=== PATIENT | female | born 1960 | race Caucasian/White ===

== ENCOUNTER 2019-12-27 08:11 | Outpatient (CLI) | payer OTHER, SELFPAY ==
--- NOTE | ~2019-12-27 | CT_ITS ---
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 Automated exposure control and iterative reconstruction technique were employe d. Exam dose: 640.63 mGy-cm total exam DLP. COMPARISON: 07/28/2019, 04/05/2019, 06/10/2017 CT abdomen/CT abdomen pelvis FINDINGS: The lung bases are clear. Normal heart size. No pericardial or pleural effusion. A small cyst is identified in the lateral segment of the left hepatic lobe. The liver, gallbladder, s pleen, pancreas and the bile and pancreatic ducts are otherwise unremarkable. Stable right adrenal m ild asymmetric enlargement. Normal left adrenal gland. No renal mass lesion or urinary tract calculus or hydroureteronephrosis. The uterus, adnexa and urinary bladder are unremarkable. Normal caliber of the abdominal aorta. No intraperitoneal or retroperitoneal or pelvic mass lesion o r lymphadenopathy. Status post right colon resection. No recurrent mass lesion or bowel obstruction or thickening, pneu matosis or pneumoperitoneum. There is a wide supraumbilical ventral midline abdominal hernia containing fat and a portion of the l eft hepatic lobe. Immediately caudal to this is a small fat-containing umbilical hernia. Moderate degenerative disc disease and minimal retrolisthesis at L1-2. There is severe degenerative d isc disease at L4-5 with mild retrolisthesis, moderate degenerative disc disease at L5-S1. Diffuse id iopathic skeletal hyperostosis of the lower thoracic spine. Bilateral hip osteoarthritis. IMPRESSION: Postoperative change of the right colon; no evidence of recurrent neuroendocrine tumor Supraumbilical midline ventral abdominal wall hernia containing liver and fat Immediately caudal small fat-containing umbilical hernia Small hepatic cyst Reviewed, dictated and finalized at [facility]. Reviewed, dictated and finalized at location A.
[2019-12-27 10:01] LABS: Estimated Glomerular Filt Rate > 60
== END 2019-12-27 08:12 | disposition home or self-care (01) ==
PROVIDERS: PCP Family Medicine; Visit Provider Surgery
DX: K43.9 Ventral hernia without obstruction or gangrene (principal); K42.9 Umbilical hernia without obstruction or gangrene; N28.1 Cyst of kidney, acquired
CPT/HCPCS: 36415; 74177; Q9967

== ENCOUNTER 2020-01-09 00:10 | Outpatient (CLI) | payer OTHER, SELFPAY ==
[2020-01-09 16:41] LABS: SARS-CoV-2 RNA PCR Negative
== END 2020-01-09 00:11 | disposition home or self-care (01) ==
LOC: ANHCOVIDDT 00:10
PROVIDERS: PCP Family Medicine; Visit Provider Surgery
DX: Z01.812 Encounter for preprocedural laboratory examination (principal); Z20.828 Contact with and (suspected) exposure to other viral communicable diseases
CPT/HCPCS: 87635; C9803; U0003

== ENCOUNTER 2020-01-09 08:54 | Outpatient (CLI) | payer OTHER, SELFPAY | END 2020-01-09 08:55 | disposition home or self-care (01) | LOC: ANHSURGERY 08:56 | PROVIDERS: PCP Family Medicine; Visit Provider Surgery | DX: Z01.818 Encounter for other preprocedural examination (principal); K43.2 Incisional hernia without obstruction or gangrene | CPT/HCPCS: 36415; 86850; 86900; 86901 ==

== ENCOUNTER 2020-01-11 02:16 | Day surgery (SDC) | payer OTHER, SELFPAY ==
[2020-01-03 10:25] VITALS: BMI 26.4
[2020-01-11] VITALS (11 sets, daily range): BP systolic 109–131; BP diastolic 61–83; PULSE 76–92; RESP 8–15; TEMP 36.6–36.9; O2SAT 92–100
[2020-01-11] MEDS: LACTATED RINGERS 1,000 ML 30 ML IV CONT ×2 (08:10→12:51)
[2020-01-11] MEDS: IBUPROFEN IV 800 MG/200 ML 800 MG/200 ML BAG 400 MG IVPB (08:18)
--- NOTE | 2020-01-11 08:47 | WPDHPUPDATE1 ---
History and Physical Update Update Date/Time: 01/11/20 08:47 History and Physical has been reviewed, including an updated exam of the patient. There are NO changes in the patient's condition. Risks, benefits, and alternatives have been discussed and questions answered. Patient agrees to proceed with procedure.
--- NOTE | 2020-01-11 08:49 | P.PNAN_ITS ---
Anes - Initial Pre Proc Eval Procedure: Operation Date: 01/11/20 09:30 Proposed Procedures p Laparoscopic Incisional Hernia Repair With Mesh, Davinci Assisted - Wali Paul DO Date/Time: 01/11/20 08:49 Surgeon: Wali Paul DO Pre Op Diagnosis: Incisional Hernia Patient Data Age: 59 Gender: F Height: 5 ft 8 in Weight: 87.2 kg Last Vital Signs Temp 98.4 F 01/11/20 08:00 Pulse 76 01/11/20 08:00 BP 109/70 01/11/20 08:00 Pulse Ox 98 01/11/20 08:00 Allergies Allergy/AdvReac Type Severity Reaction Status Date / Time rivaroxaban AdvReac Severe AL Verified 01/03/20 10:26 lisinopril AdvReac Mild COUGH Verified 01/03/20 10:26 Home Medications Medication Instructions Recorded Confirmed Type duloxetine 60 mg capsule,delayed 60 mg PO DAILY 12/12/19 01/11/20 History release losartan 50 mg tablet 50 mg PO DAILY 12/12/19 01/11/20 History Vitamin D3 1 tablet PO DAILY 01/03/20 01/11/20 History glucos sul [id number]-[id number]-C-Mn 1 cap PO DAILY 01/03/20 01/11/20 History [Glucosamine Chondroitin] lysine 1 tablet PO DAILY 01/03/20 01/11/20 History multivitamin 1 tablet PO DAILY 01/03/20 01/11/20 History trazodone 50 mg PO HS 01/03/20 01/11/20 History Patient hx anesthesia problems: none Family hx anesthesia problems: none [facility] Past Medical History Medical History Depressed Heart attack History of colon cancer History of malignant neoplasm of appendix HTN (hypertension) Surgical History Surgical History (Updated 12/14/19 @ 11:35 by Wali Paul DO) H/O colonoscopy History of knee replacement Hx of right hemicolectomy Social History Social History Smoking status: Never smoker Second hand tobacco smoke exposure: No Alcohol intake: current Substance use: never 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 Questions were solicited and answers provided to the satisfaction of the patient/family/POA.
[2020-01-11] MEDS: ceFAZolin 2 GM/D5W 50 ML 2 GM/50 ML BAG IVPB (09:22)
--- NOTE | 2020-01-11 12:37 | PM.PROC ---
Procedure Note - Detailed Date of procedure: 01/11/20 Pre-op diagnosis: Incisional Hernia Post-op diagnosis: same Procedure performed: Laparoscopic incisional hernia repair with Symbotex mesh, da Soo assisted Description of procedure: Procedure as well as risks, benefits, and alternatives were discussed with the patient. Written consent was obtained and placed in chart prior to procedure. Patient was brought back to surgical suite. She was placed supine on operating table. Time-out was done to confirm patient and procedure. She was then intubated by the anesthesia department. A bump was placed under her left hip, and the bed was flexed slightly to extend the space between her costal margin and iliac crest. Her abdomen was prepped and draped in sterile fashion using chlorhexidine prep. A 5 millimeter incision was made in the left upper quadrant, and a 5 millimeter Optiview trocar was advanced through the abdominal layers under direct visualization. Once inside the abdominal cavity, carbon dioxide insufflation was used to create a pneumoperitoneum. The abdomen was inspected. An 8 millimeter incision was made in the left lower quadrant, and an 8 millimeter robotic trocar was placed under direct visualization. Another 8 millimeter incision was made in the left lateral abdomen, and an 8 millimeter robotic trocar was placed under direct visualization. Exparel was infiltrated along the lateral abdominal lopes to perform a transversus abdominis plane block bilaterally. The 5 millimeter port was removed, the incision was extended to 12 millimeters, and a 12 millimeter air seal port was placed under direct visualization. A Jd-Aparicio cone was also used to place an 0-Vicryl simple interrupted suture at this trocar site. The robotic arms were brought up to the patient's bedside and secured to the ports. The camera and instruments were inserted, and I then moved over to the robotic console and took control of the camera and instruments. After careful thorough inspection of the abdominal cavity, I began my dissection at the hernia. The hernia sac was excised with hook electrocautery to expose the fascia edges. The falciform ligament was taken down for about 10 cm cephalad with hook cautery as well. I then measured the hernia size. The hernia measured 6cm x 6cm. The fascia was closed using an 0-Stratafix running suture in a vertical fashion. A 12in suture was started at both the superior and inferior edges of the hernia and the suture was run to overlap in the central portion of the hernia. A 15cm x 10cm Symbotex mesh was then placed within the abdominal cavity. This was oriented vertically with the mesh centered on the hernia defect. The mesh was then secured around the perimeter with 2-0 V-lock absorbable suture. Two 18in sutures were started on opposite ends and run circumferentially and then the suture was run along the midline to the central portion of the mesh. The repair was inspected, and one final inspection was made around the abdominal cavity. The robotic instruments were then removed, and the robotic arms were disengaged from the trocars. The ports were then removed under direct visualization, the camera was removed, and the pneumoperitoneum was released. The 0 Vicryl transfascial suture was tied down. The skin of the incisions was then approximated using 4-0 Monocryl subcuticular suture. Exofin glue was then applied on top. The patient was then awakened from anesthesia, extubated, and transferred to recovery. Implants: Symbotex Mesh 15cm x 10cm Anesthesia: GETA and local (Exparel) Surgeon: Wali Paul DO Estimated blood loss (mL): 10 Drains: No Pathology: yes (hernia sac) Complications: No immediate complications Condition: stable Findings: Marci is a 59 yo woman who presents with an incisional hernia. She is s/p SAM right hemicolectomy with ileocolic anastomosis on 04/12/19. She reports noticing a bulge at incision site about 6-7 wee
== END 2020-01-11 15:45 | disposition home or self-care (01) ==
PROVIDERS: PCP Family Medicine; Visit Provider Surgery
PROC: (CPT 49654; principal; 2020-01-11 09:30)
DX: K43.2 Incisional hernia without obstruction or gangrene (principal); I10 Essential (primary) hypertension; I25.2 Old myocardial infarction; F32.9 Major depressive disorder, single episode, unspecified; Z79.01 Long term (current) use of anticoagulants; Z85.038 Personal history of other malignant neoplasm of large intestine; Z85.89 Personal history of malignant neoplasm of other organs and systems
CPT/HCPCS: 49654; S2900; 88302; C1781; C9290; J0690; J1100; J1170; J1741; J2250; J2405; J2704; J2710; J3010; J7120

== ENCOUNTER 2020-04-23 20:29 | Emergency (ER) | payer OTHER, SELFPAY ==
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
--- NOTE | ~2020-04-23 | CT_ITS ---
EXAMINATION: CT brain wo con DATE: 04/23/2020 20:52 INDICATION: Confusion. TECHNIQUE: Computed tomography (CT) of the head was performed without intravenous contrast. The mA wa s adjusted according to patient size. Iterative reconstruction technique was employed. The dose-lengt h product was 681.00 mGy-cm. COMPARISON: None FINDINGS: There is no intracranial hemorrhage, acute infarction, or abnormal intracranial mass lesion . The ventricles are normal in size. The orbits are normal. The paranasal sinuses are clear. The mast oid air cells are normal. IMPRESSION: 1. Normal brain. Reviewed, dictated and finalized at location A. IMPRESSION: 1. Normal brain.
[2020-04-23 20:33] VITALS: BP 128/95; PULSE 96; RESP 18; O2SAT 100
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
[2020-04-23 21:00] VITALS: BP 117/83; PULSE 93; RESP 16; O2SAT 96
[2020-04-23 21:27] LABS: Basophils Percent Auto 0.9 % (0.2-1.2); Eosinophils Absolute Auto 0.1 K/mm3 (0-0.3); Eosinophils Percent Auto 1.9 % (0-4.4); Hemoglobin 13.3 g/dL (12.0-15.0); Immature Granulocyte Absolute 0.02 K/mm3 (0.00-0.031); Immature Granulocyte Percent A 0.4 % (0-0.5); Lymphocytes Absolute Auto 0.94 K/mm3 (0.9-3.2); Mean Corpuscular HGB Conc 33.3 g/dl (32-36); Mean Corpuscular Volume 99.3 fl (80-100); Mean Platelet Volume 9.1 fl (7.4-10.4); Monocytes Absolute Auto 0.4 K/mm3 (0.1-0.6); Monocytes Percent Auto 8.1 % (2.6-8.5); Neutrophils Absolute Auto 3.2 K/mm3 (1.3-6.7); Neutrophils Percent Auto 68.7 % (45.5-73.1); Platelet Count Result 192 k/mm3 (150-375); Red Blood Count 4.03 M/mm3 (4.2-5.4); Red Cell Distribution Width 11.9 % (11.5-14.5); White Blood Count 4.7 K/mm3 (4.5-10.0)
[2020-04-23 21:42] LABS: Alanine Aminotransferase 38 U/L (4-35); Alkaline Phosphatase 109 U/L (38-126); Anion Gap 12 mmol/L (8-16); Aspartate Amino Transferase 61 U/L (14-36); Bilirubin,Total 0.6 mg/dL (0.2-1.3); Blood Urea Nitrogen 15 mg/dL (7-17); Calcium 9.8 mg/dL (8.4-10.2); Carbon Dioxide 24 mmol/L (22-30); Chloride 100 mmol/L (98-107); Estimated CRCL calculation 88 ml/min; Estimated Glomerular Filt Rate > 60; Glucose 92 mg/dL (65-105); Potassium 4.2 mmol/L (3.4-5.0); Sodium 136 mmol/L (137-145)
[2020-04-23 21:44] LABS: Ethanol 289 mg/dL (<10)
--- NOTE | 2020-04-23 21:46 | PC.NURSE ---
Police Officers at bedside
[2020-04-23 22:00] VITALS: BP 105/65; PULSE 92; RESP 18; O2SAT 94
[2020-04-23 23:10] VITALS: BP 106/78; PULSE 91; RESP 18; O2SAT 95
== END 2020-04-23 23:10 | disposition home or self-care (01) ==
PROVIDERS: Emergency Provider Emergency Medicine
DX: F10.129 Alcohol abuse with intoxication, unspecified (principal); S22.018A Other fracture of first thoracic vertebra, initial encounter for closed fracture; V44.5XXA Car driver injured in collision with heavy transport vehicle or bus in traffic accident, initial encounter; S80.812A Abrasion, left lower leg, initial encounter
CPT/HCPCS: 36415; 70450; 71045; 72125; 80053; 80307; 85025; 99284

== ENCOUNTER 2020-09-20 15:30 | Outpatient (RCR) | payer OTHER, SELFPAY ==
--- NOTE | 2020-08-22 11:36 | PTOPEVAL ---
PHYSICAL THERAPY EVALUATION AND PLAN OF CARE Thank you for referring Marci Smart to [facility].? The patient is scheduled to be seen for therapy? 2x/week for 4-6 weeks. Please review, sign, date and return this plan of care MELECIO. I agree with and certify that the following plan of care is medically necessary. Referring Physician Date Evaluation right TKA Onset 07/18/2020 Subjective Information Right total knee 5 weeks ago. Query Text:As Reported By Patient/ She participated in home Family health therapy between now and then and that went well. Started out taking no narcotic medication, but pain started to become uncontrolled so she started taking percaset at night and an hour before surgery. Self Report Pain Assessment Right Knee(s) Reported Pain Level 2 Pain Description Aching Pain Frequency Acute,Intermittent Lowest Pain Intensity 4 Pain Score Pain Score 2: Self Report Interventions Used Interventions Used By Clinicians Exercise Pain Relief Interventions Used By Exercise,Ice Patient Lower Extremity Range of Motion Knee Range of Motion Right Knee Flexion Range of Motion - Active 101 Knee Extension Range of Motion - Active -5 Query Text: Lower Extremity Muscle Strength Testing Hip Strength Right Hip Flexion Strength 5 Normal Hip Extension Strength 4- Good - Hip Abduction Strength 3 Fair Knee Strength Right Knee Flexion Strength 4+ Good + Knee Extension Strength 4- Good - Muscle Length Testing Muscle Length Testing Jose Test Shortened Muscles Short (R) Rectus Femoris Palpation Assessment Palpation Palpation moderate patellar mobility that improves with mobilizations; mild edema noted at patella; tightness noted through proximal quad muscle Gait Assessment Gait Pattern Assessment Gait Pattern Antalgic Gait Other Gait Observations decreased right ankle dorsiflexion at toe off and increased right pelvic rotation at end right stance phase PT Clinical Summary Marci is a 59 yo female presenting to outpatient physical therapy 5 weeks s/p right TKA. She presents today
--- NOTE | 2020-09-11 15:36 | PCPTNOTE ---
Patient called & cancelled scheduled appointment this date due to work.
--- NOTE | 2020-09-18 16:11 | PCPTNOTE ---
Patient called & cancelled scheduled appointment this date due to work.
--- NOTE | 2020-09-20 16:11 | PTOPEVAL ---
PHYSICAL THERAPY DISCHARGE NOTE Thank you for referring Marci Smart to [facility]. Please review, sign, date and return this plan of care [facility]. I agree with and certify that the following plan of care is medically necessary. Referring Physician Date Discharge Diagnosis right TKA Onset 07/18/2020 Subjective Information Right total knee 9 weeks ago. Query Text:As Reported By Patient/ Has returned to work and is Family doing well. Self Report Pain Assessment Right Knee(s) Reported Pain Level 0 Other Pain Description reported R buttocks pain Pain Score Pain Score 0: Self Report Interventions Used Interventions Used By Clinicians Exercise Pain Relief Interventions Used By Exercise,Ice Patient Lower Extremity Range of Motion Knee Range of Motion Right Knee Flexion Range of Motion - Active 115 Knee Extension Range of Motion - Active 0 Query Text: Lower Extremity Muscle Strength Testing Hip Strength Right Hip Flexion Strength 5 Normal Hip Extension Strength 4+ Good + Hip Abduction Strength 4+ Good + Knee Strength Right Knee Flexion Strength 5 Normal Knee Extension Strength 4+ Good + Gait Assessment 2 Minute Walk Total Distance Walked (feet) 429 2 Minute Walk Gait Speed Score (feet/ 3.57 second) General Exercise General Exercises Side Right Exercise Location knee Exercise Description -leg press: seat at 3; Query Text:Record Sets, Reps, bilateral 100# x20, 50# Resistance, and Position unilateral x20 -single leg heel raises x5 each side; x15 bilateral -sit<>stand from low mat table , single leg -SLS on right [id number] -discussed home exercises to progress to single leg activities as exercises are noted above; to attenuate brain to using the right leg as it is supposed to be used. Bike Exercise Bike Extremity Bilateral Lower Type of Bike Recumbent Bike Resistance level 5 Duration (minutes) 6 PT Clinical Summary Marci is a 59 yo female presenting to outpatient physical therapy 9 weeks s/p right TKA. Marci's gait pattern is normal and at normal pace. Sh
== END 2020-09-21 07:49 | disposition home or self-care (01) ==
LOC: ANHPT 15:30
PROVIDERS: PCP Family Medicine
DX: Z47.1 Aftercare following joint replacement surgery (principal); M25.561 Pain in right knee; Z96.651 Presence of right artificial knee joint
CPT/HCPCS: 97110; 97161

== ENCOUNTER → 2020-10-16 13:55 | Outpatient (CLI) | payer OTHER, SELFPAY ==
--- NOTE | ~2020-10-16 | CT_ITS ---
EXAMINATION: CT abdomen pelvis w con DATE: 10/16/2020 14:36 INDICATION: Right lower quadrant abdominal pain TECHNIQUE: Computed tomography (CT) of the abdomen and pelvis was performed with 100 cc Omnipaque 350 intravenous contrast. The dose-length product was 646.94 mGy-cm. Automated exposure control and iter ative reconstruction technique were employed. COMPARISON: CT dated 12/27/2019 FINDINGS: Lung bases are unremarkable. Heart size is normal. No significant pleural or pericardial ef fusion. There are changes of right partial colectomy. No significant vascular abnormality. No lymphad enopathy. Previously identified supraumbilical hernia not identified currently, likely fixed surgical ly. Correlate clinically. Nonobstructive bowel gas pattern. No abnormal pelvic masses or fluid collec tions. The liver, spleen, pancreas, left adrenal gland and kidneys are unremarkable. There is a small subcen timeter cyst of the left hepatic lobe. There is a 1.8 cm right adrenal mass, statistically likely chelsi ign adenoma. Consider correlation with MRI. IMPRESSION: 1. No evidence for residual/recurrent tumor. No acute abdominal abnormality. 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 Reviewed, dictated and finalized at location A. NICAL DESIGNER
[2020-10-16 14:24] LABS: Estimated Glomerular Filt Rate > 60
== END ==
PROVIDERS: Visit Provider Surgery
DX: R10.31 Right lower quadrant pain (principal)
CPT/HCPCS: 74177; Q9967

== ENCOUNTER 2021-07-30 08:39 | Outpatient (CLI) | payer BC, SELFPAY ==
--- NOTE | ~2021-07-30 | MM_ITS ---
EXAMINATION: MM screening [facility] BI w paul HISTORY: Screening mammogram TECHNIQUE: Craniocaudal and mediolateral oblique 3-D tomosynthesis images were obtained and synthetic 2-D images were generated. CAD analysis was submitted and interpreted. COMPARISON: 06/28/2019, 06/16/2019, 08/25/2017 BREAST PARENCHYMAL COMPOSITION: There are scattered areas of fibroglandular density. FINDINGS: There is no evidence of suspicious mass, calcification, or architectural distortion to sugg est malignancy in either breast. There has been no suspicious interval change. IMPRESSION: 1. No mammographic evidence of malignancy. 2. Recommend routine screening mammography in one year. BI-RADS Category 1: Negative Reviewed, dictated and finalized at location A. CHOPPER
== END 2021-07-30 08:40 | disposition home or self-care (01) ==
LOC: ANHIMG 08:40
PROVIDERS: PCP Family Medicine; Visit Provider Family Medicine
DX: Z12.31 Encounter for screening mammogram for malignant neoplasm of breast (principal)
CPT/HCPCS: 77063; 77067

== ENCOUNTER 2022-01-12 11:48 | Emergency (ER) | payer BC, SELFPAY ==
--- NOTE | ~2022-01-12 | CT_ITS ---
EXAMINATION: CT abdomen pelvis wo con DATE: 01/12/2022 12:26 INDICATION: Right flank pain TECHNIQUE: Computed tomography (CT) of the abdomen and pelvis was performed without intravenous contr ast. The dose-length product (DLP) was 820.19 mGy-cm. Automated exposure control and iterative recons truction technique were employed. COMPARISON: 10/16/2020 FINDINGS: There is a comminuted fracture at the posterolateral aspect of the right 10th rib. There is a comminuted fracture the posterior lateral aspect of the 11th rib as well as a fracture in the medi al aspect of the right 11th rib near the vertebral body. There is an oblique, minimally displaced fra cture of the posterior right 12th rib. There is a nondisplaced fracture of the right L1 transverse pr ocess. There our airspace opacities of the right lower lobe adjacent to the rib fractures. There is a small right pleural effusion. A small right pneumothorax has also noted. There is gas in the subcuta neous tissues of the right flank. Within the limitations of noncontrast examination, the liver, spleen, pancreas, gallbladder, and left adrenal gland are normal. A stable low-density right adrenal mass is consistent with an adenoma. The kidneys are unremarkable. There are changes of right hemicolectomy. No pathologically enlarged abdom inal or pelvic lymph nodes are identified. There is no free intraperitoneal gas or evidence of bowel obstruction. There is moderate lumbar spondylosis. IMPRESSION: 1. Comminuted fractures of the right 10th and 11th ribs and oblique fracture of the 12th rib with ass ociated small right hydropneumothorax. 2. Adjacent airspace opacities of the right lower lobe may reflect contusion and/or atelectasis. 3. Nondisplaced right L1 transverse process. Reviewed, dictated and finalized at location A. IMPRESSION: 1. Comminuted fractures of the right 10th and 11th ribs and oblique fracture of the 12th rib with associated small right hydropneumothorax. 2. Adjacent airspace opacities of the right lower lobe may reflect contusion an d/or atelectasis. 3. Nondisplaced right L1 transverse process.
--- NOTE | ~2022-01-12 | XR_ITS ---
EXAMINATION: XR ribs RT 2V w CXR 2V INDICATION: Right chest pain TECHNIQUE: Frontal and lateral views of the chest and 3 views of the right ribs were obtained. COMPARISON: CT from today and chest radiograph dated 04/23/2020 FINDINGS: There are comminuted fractures of the right 10th and 11th ribs. A fracture is also seen in the medial aspect of the right 11th rib. The known right 12th rib fracture and right L1 transverse pr ocess fracture are not well demonstrated. There is a minute right apical pneumothorax. There are airs pace opacities of the right lower lobe adjacent to the rib fractures. The cardiomediastinal silhouett e is normal. A suture anchor is noted in the left humeral head. IMPRESSION: 1. Comminuted fractures of the right 10th and 11th ribs. 2. Tiny right apical pneumothorax. 3. Right lower lobe airspace opacities, consistent with atelectasis and/or pulmonary contusion. Reviewed, dictated and finalized at location A. IMPRESSION: 1. Comminuted fractures of the right 10th and 11th ribs. 2. Tiny right apical pneumothorax. 3. Right lower lobe airspace opacities, consistent with atelectasis and/or pulm onary contusion.
[2022-01-12 11:53] VITALS: BP 142/85; PULSE 88; RESP 16; TEMP 36.4; O2SAT 100
--- NOTE | 2022-01-12 12:22 | PC.NURSE ---
pt. to CT
[2022-01-12] MEDS: MORPHINE SULFATE (*CRX) 4 MG/ML INJ IV PUSH ×2 (12:50→14:01)
[2022-01-12 12:56] LABS: Basophils Percent Auto 0.5 % (0.2-1.2); Eosinophils Absolute Auto 0.1 K/mm3 (0-0.3); Eosinophils Percent Auto 0.9 % (0-4.4); Hematocrit 39.5 % (37.0-47.0); Hemoglobin 12.5 g/dL (12.0-15.0); Immature Granulocyte Absolute 0.02 K/mm3 (0.00-0.031); Immature Granulocyte Percent A 0.4 % (0-0.5); Lymphocytes Absolute Auto 0.83 K/mm3 (0.9-3.2); Lymphocytes Percent Auto 14.9 % (18.3-44.2); Mean Corpuscular HGB Conc 31.6 g/dl (32-36); Mean Corpuscular Hemoglobin 33.4 pg (26-34); Mean Corpuscular Volume 105.6 fl (80-100); Mean Platelet Volume 9.3 fl (7.4-10.4); Monocytes Absolute Auto 0.7 K/mm3 (0.1-0.6); Monocytes Percent Auto 12.6 % (2.6-8.5); Neutrophils Absolute Auto 3.9 K/mm3 (1.3-6.7); Neutrophils Percent Auto 70.7 % (45.5-73.1); Platelet Count Result 175 k/mm3 (150-375); Red Blood Count 3.74 M/mm3 (4.2-5.4); White Blood Count 5.6 K/mm3 (4.5-10.0)
--- NOTE | 2022-01-12 12:57 | ED.GENADULT ---
HPI - General Adult General Chief complaint: Back Pain/Injury Stated complaint: Back pain Time Seen by Provider: 01/12/22 11:58 History of Present Illness HPI narrative: Patient is a 61-year-old female who presents ER with right-sided back and flank pain. Patient was in her garage when some atrium doors fell on her and she struck her right back against a bike pedal. Sudden onset pain. Worse with twisting and moving. 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 Pain persists and she can only tolerate standing today. No lower extremity numbness or tingling. No difficulty with urination or defecation. Patient does have some pain with deep breath. No dyspnea. She did not strike her head or lose consciousness. She is not on blood thinners. Related Data Home Medications Medication Instructions Recorded Confirmed Vitamin D3 1 tablet PO DAILY 01/03/20 10/11/21 glucosamine sulf dipot 1 cap PO DAILY 01/03/20 10/11/21 chlr,msm,chond 550 mg-C 30 mg-jeannette 1 mg capsule (Glucosamine Chondroitin) lysine 1 tablet PO DAILY 01/03/20 10/11/21 multivitamin 1 tablet PO DAILY 01/03/20 10/11/21 Allergies Allergy/AdvReac Type Severity Reaction Status Date / Time rivaroxaban AdvReac Severe HI Verified 01/12/22 12:10 lisinopril AdvReac Mild COUGH Verified 01/12/22 12:10 Review of Systems Review of Systems: All systems reviewed & are unremarkable except as noted in HPI and below Constitutional: Constitutional: Denies chills and Denies fatigue Cardiovascular: Cardiovascular: Denies chest pain, Denies rapid heart rate and Denies radiating jaw, neck or arm pain Respiratory: Respiratory: Denies cough and Denies dyspnea Gastrointestinal: Gastrointestinal: Denies abdominal pain, Denies nausea and Denies vomiting Musculoskeletal: Musculoskeletal: Reports back pain, Denies arthralgias and Denies joint swelling Neurologic: Denies syncope, Denies focal weakness and Denies numbness PMFSH Past Medical History Medical History (Updated 01/12/22 @ 13:12 by Ethan Ibarra MD) Depressed Depression FH: coronary artery disease Heart attack Reaction to Xarelto History of colon cancer History of malignant neoplasm of appendix HTN (hypertension) Macular degeneration of both eyes Neuroendocrine tumor status post surgical treatment Thoracic compression fracture Surgical History Surgical History (Reviewed 10/11/21 @ 09:12 by Yoko Tolentino [facility]) H/O colonoscopy History of incisional hernia repair Laparoscopic incisional hernia repair with mesh Davinci assisted 01/10 History of knee replacement Hx of right hemicolectomy Neuroendocrine tumor Family History Family History (Updated 10/11/21 @ 09:12 by Yoko Tolentino [facility]) Mother Family history of malignant neoplasm Family history of lung cancer Family history of malignant neoplasm of brain Family history of malignant neoplasm of bone Father Hypertension Grandparent Family history of malignant neoplasm Family history of heart disease in male family member before age 55 Other Acute myocardial infarction Family history of Alzheimer's disease Family history of arthritis Social History Social History (Updated 10/11/21 @ 09:15 by Yoko Tolentino [facility]) Second hand tobacco smoke exposure: No Alcohol intake: current Drinks per week: 12 Substance use: current Substance use type: marijuana and other Other substance usage details: edibles; seldom; for relaxation 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 HEAD: Normocephalic, atraumatic. ENT: Mucous membranes moist. CHEST: Clear to auscultation. No respiratory distress. HEART: Regular rate and rhythm. Normal peripheral pulses. ABDOMEN: Soft, nontender, nondistended. Back: No midline tenderness of the thoracic spine. There is some tenderness
[2022-01-12 13:07] LABS: Alanine Aminotransferase 23 U/L (6-35); Albumin Level 4.6 g/dL (3.5-5.1); Alkaline Phosphatase 82 U/L (38-126); Anion Gap 6 mmol/L (8-16); Aspartate Amino Transferase 31 U/L (14-36); Bilirubin,Total 1.3 mg/dL (0.2-1.3); Blood Urea Nitrogen 9 mg/dL (7-17); Calcium 9.3 mg/dL (8.4-10.2); Carbon Dioxide 30 mmol/L (22-30); Chloride 98 mmol/L (98-107); Estimated CRCL calculation 85 ml/min; Estimated Glomerular Filt Rate > 60; Glucose 135 mg/dL (65-110); Potassium 4.1 mmol/L (3.4-5.0); Sodium 134 mmol/L (137-145)
[2022-01-12 13:16] LABS: Appearance Urine Clear (Clear); Bilirubin Urine Negative (Negative); Blood Urine Negative (Negative); Color Urine Yellow (Yellow); Glucose Urine UA Negative (Negative); Ketones Urine Negative (Negative); Leukocyte Esterase Ur Negative LEU/UL (Negative); Nitrate Urine Negative (Negative); Protein Urine Negative (Negative); Urobilinogen Urine 0.2 mg/dL (<2.0)
[2022-01-12 13:21] LABS: RBC Urine 0-2 /hpf (0-2); WBC Urine 0-3 /hpf
[2022-01-12 13:23] LABS: Add Urine Microscopic? YES
[2022-01-12 13:26] VITALS: BP 113/63; PULSE 89; RESP 19; O2SAT 92
[2022-01-12 13:29] VITALS: BP 116/82; PULSE 80; RESP 14; O2SAT 94
[2022-01-12 13:30] VITALS: O2SAT 94
--- NOTE | 2022-01-12 13:32 | PC.NURSE ---
pt. placed in C-collar
[2022-01-12 13:45] VITALS: BP 121/81; PULSE 84; RESP 14; O2SAT 93
[2022-01-12 14:00] VITALS: BP 113/71; PULSE 87; RESP 14; O2SAT 93
== END 2022-01-12 14:15 | disposition short-term general hospital (02) ==
PROVIDERS: Emergency Provider Emergency Medicine; PCP Family Medicine
DX: S27.301A Unspecified injury of lung, unilateral, initial encounter (principal); S22.41XA Multiple fractures of ribs, right side, initial encounter for closed fracture; S32.018A Other fracture of first lumbar vertebra, initial encounter for closed fracture; I25.2 Old myocardial infarction; I10 Essential (primary) hypertension; H35.30 Unspecified macular degeneration; Z96.659 Presence of unspecified artificial knee joint; Z85.09 Personal history of malignant neoplasm of other digestive organs; Z85.038 Personal history of other malignant neoplasm of large intestine; W20.8XXA Other cause of strike by thrown, projected or falling object, initial encounter
CPT/HCPCS: 36415; 51701; 71046; 71100; 74176; 80053; 81001; 85025; 96374; 96376; 99285; J2270; L0140